=== PATIENT | female | born 1990 | race Caucasian/White ===

== ENCOUNTER 2022-05-08 08:12 | Emergency (ER) | payer OTHER ==
[2022-05-09] MEDS ORDERED: FERROUS SULFAT325 MG PO (11:48)
[2022-05-09] MEDS ORDERED: IBUPROFEN600 MG PO (11:48)
[2022-05-09] MEDS ORDERED: COLACE100 MG PO (11:48)
== END 2022-05-08 10:49 | disposition home or self-care (01) ==
LOC: ER1 08:12
DX: O02.1 Missed abortion (principal); F17.200 Nicotine dependence, unspecified, uncomplicated
CPT/HCPCS: 99283

== ENCOUNTER 2022-05-08 15:06 | Inpatient (IN) | payer OTHER ==
[~2022-05-08] VITALS: Ht 154.9 cm; Wt 73.9 kg
[2022-05-08 16:06] LABS: HEMOGLOBIN 10.9 gm/dl (12.3-15.3); RED BLOOD COUNT 3.99 M/UL (4.00-5.10); WHITE BLOOD COUNT 15.2 K/UL (4.5-11.0)
[2022-05-08 16:20] LABS: BUN/CREATININE RATIO 12 (0-10)
[2022-05-09 06:48] LABS: HEMOGLOBIN 7.6 gm/dl (12.3-15.3)
[2022-05-09] MEDS ORDERED: FERROUS SULFAT325 MG PO (11:48)
[2022-05-09] MEDS ORDERED: COLACE100 MG PO (11:48)
[2022-05-09] MEDS ORDERED: IBUPROFEN600 MG PO (11:48)
== END 2022-05-09 17:13 | disposition home or self-care (01) | DRG 807 ==
LOC: GENOP 15:06 → OB 15:20
PROVIDERS: Obstetrics & Gynecology; ADMIT Obstetrics & Gynecology
PROC: 10E0XZZ Delivery of Products of Conception, External Approach (ICD-10-PCS; principal; 2022-05-08)
PROC: 3E0P7VZ Introduction of Hormone into Female Reproductive, Via Natural or Artificial Opening (ICD-10-PCS; 2022-05-08)
PROC: 3E0DXGC Introduction of Other Therapeutic Substance into Mouth and Pharynx, External Approach (ICD-10-PCS; 2022-05-08)
DX: O36.4XX0 Maternal care for intrauterine death, not applicable or unspecified (principal); Z37.1 Single stillbirth; D50.0 Iron deficiency anemia secondary to blood loss (chronic); Z3A.28 28 weeks gestation of pregnancy; O99.012 Anemia complicating pregnancy, second trimester
CPT/HCPCS: 36415; 80053; 80307; 81001; 85014; 85018; 85025; 85384; 85610; 85730; 86850; J1956; J2590